=== PATIENT | female | born 1970 | race Caucasian/White ===

== ENCOUNTER 2024-08-15 12:48 | Emergency (ER) | payer OTHER ==
[~2024-08-15] VITALS: Ht 162.6 cm; Wt 60.7 kg
[2024-08-15] MEDS ORDERED: MORPHINE SULFATE 4 MG/ML VIAL IV ONE (13:45)
[2024-08-15] MEDS ORDERED: VITAMIN D350 MCG PO (13:49)
[2024-08-15] MEDS ORDERED: FISH OIL 1,0001 EAC6 PO (13:49)
[2024-08-15 14:15] LABS: INR 1.29 (0.80-1.30); PROTIME 15.4 Sec (11.2-14.2)
[2024-08-15 14:20] LABS: ALBUMIN 3.5 g/dL (3.4-5.0); ALBUMIN/GLOBULIN RATIO 0.8 (1.1-2.4); ANION GAP 9.7 (7-21); BILIRUBIN, TOTAL 1.1 mg/dL (0.2-1.0); BUN/CREATININE RATIO 16.66 (6.0-28.6); CALCIUM 8.8 mg/dL (8.5-10.1); CREATININE, SERUM 0.72 mg/dL (0.55-1.02); MAGNESIUM 1.9 mg/dL (1.8-2.4); POTASSIUM 3.7 mmol/L (3.5-5.1); PROTEIN, TOTAL 7.9 g/dL (6.4-8.2)
[2024-08-15 14:42] LABS: BASOPHILS 0.5 % (0-2); EOSINOPHILS 0.8 % (0-6); HEMATOCRIT 51.9 % (35.0-50.0); LYMPHOCYTES 6.3 % (24-44); MCHC 32.9 g/dl (30-36); MCV 88.3 fl (81-99); MONOCYTES 6.9 % (0-12); NEUTROPHILS 85.5 % (39-80); PLATELET COUNT 372 K/uL (140-440); RBC 5.87 M/ul (4.3-5.7); RDW 16.4 (10.5-15.0)
[2024-08-15] MEDS ORDERED: ELIQUIS5 M1 PO (15:32)
[2024-08-15] MEDS ORDERED: OXYCODONE HCL5 MG PO (15:35)
[2024-08-15] MEDS ORDERED: TRAMADOL HCL50 MG PO (15:35)
[2024-08-15 15:45] VITALS: BP 120/73
== END 2024-08-15 15:45 | disposition home or self-care (01) ==
LOC: ED 12:48
PROVIDERS: Family Medicine
DX: I81 Portal vein thrombosis (principal); Z79.899 Other long term (current) drug therapy
CPT/HCPCS: 36415; 80053; 83735; 85025; 85060; 85610; 99284